=== PATIENT | female | born 1995 | race Caucasian/White ===

== ENCOUNTER 2023-09-28 15:37 | Inpatient (IN) | payer BC, SELFPAY ==
[2023-09-28 15:42] VITALS: BP 131/99; PULSE 135; RESP 16; TEMP 36.6; O2SAT 98; BMI 20.1
--- NOTE | 2023-09-28 17:27 | HP.PCM.HOS_ITS ---
HPI - General General Date of Admission: 09/28/23 Date of Service: 09/28/23 Chief Complaint: EtOH Withdrawal HPI Narrative The patient is a 28 y/o F w/ PMHx: EtOH abuse (Liquor shots ~ 20/day) ongoing for the last 10-11 years, Chronic anemia, Tobacco use, Asthma with allergic rhinitis who presents to the [facility] on 09/28/23 w/ noted acute EtOH withdrawal, onset starting on day of presentation in the late afternoon with last alcohol intake approximately 2 AM with onset of nausea without emesis, tremors, mild agitation, tactile disturbances. Patient interested in attaining sober status. Work-up in the ED included T97.8, heart rate 135, BP 131/99, respiratory rate 16, 98% on room air, CBC with WBC 8.7, hemoglobin 14.6, platelet 399 without marked shift, CMP with sodium 129, potassium 2.5, chloride 78, glucose 122, T. bili 1.70, AST/LT 64/35, alk phos 206, negative serum testing, ethyl alcohol 290. Urine drug screen pending upon requested evaluation of patient. In the ED patient ministered potassium 40 mill equivalent p.o. x1. [facility] Medical History Allergic rhinitis Anemia Asthma ETOH abuse Tobacco use Home Medications cetirizine 10 mg tablet (24Hour Allergy) 10 mg PO DAILY PRN allergy symptoms 09/28/23 [History Last Taken Unknown] Allergy/AdvReac Type Severity Reaction Status Date / Time Penicillins Allergy Severe Hives Verified 09/28/23 15:41 Family History (Updated 09/28/23 @ 19:[address] Sintia Chi MD) Mother Breast cancer Grandmother Breast cancer Father Alcoholism Surgical History (Updated 09/28/23 @ 19:[address] Sintia Chi MD) H/O colposcopy with cervical biopsy History of dental surgery Social History (Updated 09/28/23 @ 19:[address] Sintia Chi MD) household members: none Smoking Status: Current every day smoker tobacco type: e-cigarettes how long ago did patient quit smoking: Quit cigarette tobacco 3 yrs prior (1 ppd since teen)->transition to vaping alcohol intake: current alcohol intake frequency: 3 or more drinks per day details: ~ 20 apple liquor shots daily. substance use type: does not use ROS ROS Narrative Admission Review of Systems: CONSTITUTIONAL: No weight loss, fever, chills, + weakness or fatigue. HEENT: Eyes: No visual loss, blurred vision, double vision or yellow sclerae. Ears, Nose, Throat: No hearing loss, sneezing, congestion, runny nose or sore throat. SKIN: No rash or itching, lesions, wounds. CARDIOVASCULAR: No chest pain, chest pressure or chest discomfort, palpitations, edema, orthopnea, syncopal events. RESPIRATORY: No shortness of breath, cough or sputum, wheezing, hemoptysis. GASTROINTESTINAL: + anorexia. No nausea, vomiting or diarrhea, abdominal pain, melena, BRBPR. GENITOURINARY: No dysuria, frequency, urgency or retention. NEUROLOGICAL: + Mild tremors, tactile disturbances. No headache, dizziness, syncope, paralysis, ataxia, numbness or tingling in the extremities, focal weakness, change in bowel or bladder control, seizure. MUSCULOSKELETAL: + muscle, back pain, joint pain or stiffness. HEMATOLOGIC: + Hx anemia. No bleeding or bruising. LYMPHATICS: No enlarged nodes. No history of splenectomy. PSYCHIATRIC: No history of depression or anxiety. ENDOCRINOLOGIC: No reports of sweating, cold or heat intolerance. No polyuria or polydipsia. ALLERGIES: + history of asthma, rhinitis, hives. Vital Signs Vital Signs Vital Signs: 09/28/23 15:42 Temperature 97.8 F Temperature Source Temporal Pulse Rate 135 H Respiratory Rate 16 Blood Pressure 131/99 H Blood Pressure Mean 109 Pulse Ox 98 Oxygen Delivery Method Room Air Weight Weight: 103 lb 1.6 oz Body Mass Index (BMI) 20.1 Physical Exam Narrative Physical Examination: General: Awake, alert, oriented x 3 and cooperative, seated upright in the ED bed, fatigued, mildly tremulous. Skin: Normal color, normal turgor, no icterus, no cyanosis except for occasional staged, ecchymoses. HEENT: AT/NC, EOMI, PERRLA, dry MM, no carotid bruits or JVD noted. Lungs: CTA bilaterally, moderate effort, mild decrease BL bases, no rales, ronchi or wheezing. Heart: Tachycardic with regular rhythm; no gallop, rub audible. Abdomen: Soft, NTTP, ND, hyperactive BS, no marked HM appreciated. Extremities: No cyanosis, clubbing, or edema. Neurological: Patient awake, alert, oriented as noted, cognitive function intact; pupils equally reactive to light and accommodation, cranial nerves gross ly normal, moving all 4 extremities, no focal deficits, strength mildly globally decreased, mild tremors, tactile disturbances noted. Psychiatric: Affect appears fatigued, flat, no acute evidence of depressive or anxiety feelings. Results Lab / Micro Data 09/28/23 17:45 09/28/23 17:45 Assessment & Plan Assessment/Plan (1) Alcohol withdrawal: PLAN: Plan The patient is a 28 y/o F w/ PMHx: EtOH abuse (Liquor shots ~ 20/day) ongoing for the last 10-11 years, Chronic anemia, Tobacco use, Asthma with allergic rhinitis who presents to the [facility] on 09/28/23 w/ noted acute EtOH withdrawal. #1. Acute EtOH Withdrawal with chronic alcohol abuse and mild hyperbilirubinemia and transaminitis: Will admit to NC, routine labs obtained in the ED upon presentation with electrolyte disturbances with sodium 129, potassium 2.5, chloride 78, total bilirubin 1.70, AST/ALT 64/35, alk phos 206, negative testing, ethyl alcohol level 290, given interest in sobriety, will initiate and continue on protocol with taper course of Phenobarbital, as needed gabapentin, Catapres, Bentyl, Vistaril, IV fluids, IV antiemetics, Tylenol as needed for pain. Will consult Case management for assistance for transition to next level of rehabilitation care. Mag, phos pending. Maintain on CIWA protocol concurrently. #2. Hyponatremia, suspect acute on chronic component: Admission sodium 129, chloride 78, suspect acute on chronic given alcohol withdrawal presentation with alcohol abuse but no prior comparisons, will administer IV fluid bolus and will repeat CMP in a.m. given significant electrolyte concurrent disturbances. #3. Hypokalemia: Admission K+ 2.5, magnesium level requested, supplementation given given in the ED and will add an additional oral dose, repeat level in AM. #4. Anemia, unclear etiology: Patient reports a remote history of chronic anemia that required transfusion with no clear etiology and even noted transfer down to [facility]. She denies heavy menstruation and in fact does not have cycles but was previously on Depo-Provera shots. Upon current presentation hemoglobin 14.6, MCV 89, encourage continued outpatient follow-up. #5. Chronic COPD: Will maintain on oxygen with wean as tolerated to room air/home oxygen supplementation, continue ATC duonebs, PRN albuterol, HOB, IS parameters. #6. Tobacco Abuse: Encouraged cessation, inpatient consultation per RT, NR if desired. #7. DVT prophylaxis: Low risk for type of admission. Charges/Coding Visit Charges Inpatient E&M: 13185 Init Hosp L3
--- NOTE | 2023-09-28 17:28 | EX.ED.SAOD ---
HPI History of Present Illness Chief Complaint: Substance Abuse Informant: patient Onset/Context/Timing Onset: Today Context: Gradual Onset Timing: Continuous Worsened by: Nothing Relieved by: Nothing Associated Symptoms Associated Symptoms: Positive for vomiting*, diarrhea*, rash*, palpatations and no; Negative for fever*, seizure, tremor, change in mental status, suicidal ideation or homicidal ideation Narrative Narrative: Presents requesting detox from alcohol. Patient states her last drink was approximately 15 hours prior to arrival. Patient states she drinks approximately 20 shots per day. Patient admits to some vomiting and diarrhea. Patient admits to some subjective chills but denies any fevers. Patient admits to some palpitations. Patient denies any chance of . Patient has never been through detox in the past. Patient denies any suicidal or homicidal ideations. PFSH PFSH Medical History Anemia ETOH abuse Allergy/AdvReac Type Severity Reaction Status Date / Time Penicillins Allergy Severe Hives Verified 09/28/23 15:41 Social History Smoking Status: Current every day smoker tobacco type: e-cigarettes ROS ROS ED Constitutional Constitutional ED: Reports chills and subjective Eyes Eyes: Denies blurry vision or change in vision ENT ENT ED: Denies rhinorrhea or sore throat Cardiovascular Cardiovascular: Reports palpitations; Denies chest pain Respiratory/Chest Respiratory/Chest: Denies cough or dyspnea Gastrointestinal Gastrointestinal: Reports diarrhea and vomiting Genitourinary Genitourinary ED: Denies dysuria or urinary frequency Musculoskeletal Musculoskeletal: Denies back pain or neck pain Integumentary Reports rash Neurologic Neurologic: Denies headache(s) or weakness Allergic/Immunologic Allergic/Immunologic ED: Denies tongue swelling or urticaria EXAM Physical Exam Const Vital Signs: 09/28/23 15:42 Temperature 97.8 F Temperature Source Temporal Pulse Rate 135 H Respiratory Rate 16 Blood Pressure 131/99 H Blood Pressure Mean 109 Pulse Ox 98 Oxygen Delivery Method Room Air Positive well nourished and well developed General Appearance ED: well developed and NAD HEENT Reports moist mucous membranes Neck supple and no JVD Resp normal respiratory effort and clear to auscultation bilaterally Cardio regular rate and regular rhythm GI non-tender and non-distended Neuro oriented x3, CN's II-XII intact bilaterally and no sensory deficits noted Jen Coma Scale: document GCS findings Spontaneous Obeys Commands Oriented 15 Sensorium / Orientation: alert Speech: speech normal Motor Exam: strength 5/5 throughout MDM MDM MDM Narrative Medical decision making narrative: Differential diagnosis includes alcohol detox, alcohol withdrawal, and substance abuse. CBC will be obtained to assess for leukocytosis and anemia. Comprehensive metabolic profile will be obtained to assess for hepatic function, renal function, and electrolyte abnormality. Serum hCG will be obtained to assess for . Serum alcohol level will be obtained to assess for alcohol intoxication. Urine tox screen will be obtained to assess for substance abuse. Treatment and Re-Evaluation Narrative: IV line was established. Case was discussed with the hospitalist. She will admit the patient to her service. Patient understood and was agreeable with the plan. All questions were answered. Discharge Plan Triage Chief Complaint: Substance Abuse ED Provider: Eduardo Daniel Dx/Rx/DC Orders Clinical Impression: Alcohol dependence, Alcohol withdrawal Disposition Disposition: Acute Care Hospital [facility]
[2023-09-28 17:51] VITALS: BP 124/90; PULSE 107; RESP 16; TEMP 36.8; O2SAT 98
[2023-09-28 18:30] LABS: Absolute Lymphocyte Count 2.62 X10^3/uL (0.83-4.51); Absolute Neutrophil Count 5.3 X10^3/uL (2.0-7.7); Basophil# 0.07 X10^3/uL; Basophil% 0.8 % (0-1); Eosinophil# 0.01 X10^3/uL; Eosinophils% 0.1 % (0-5); Hemoglobin 14.6 g/dL (12.0-15.0); Lymphocyte # 2.62 X10^3/ul (0.83-4.51); Lymphocyte % 30.2 % (19-41); Mean Corp Hgb Conc 37.4 g/dL (32-36); Mean Corpuscular Hgb 33.3 pg (27.0-32.0); Mean Platelet Vol. 10.4 fl (6.2-12.0); Monocyte% 8.1 % (0-10); NRBC Flagged by Analyzer 0 % (0-5); Neutrophil # 5.25 X10^3/uL (2.7-7.7); Neutrophil % 60.6 % (47-70); Platelet Count 399 K/mm3 (150-450); RBC Distribution Width SD 41.9 fl (35.1-43.9); Red Blood Count 4.38 M/mm3 (4.2-5.4); White Blood Count 8.7 K/mm3 (4.4-11.0)
[2023-09-28 18:35] LABS: Internal QC Validated? YES +Cl - CLEAR BKGD; Pregnancy, Serum, hCG Quali. NEGATIVE Negative; Record Kit Lot#, Serum Preg. 667200
[2023-09-28 18:37] LABS: Phosphorus 4.5 mg/dL (2.5-4.9)
[2023-09-28 18:46] LABS: ALB/GLOB Ratio 1.2 RATIO (0.9-2.4); AST(SGOT) 64 U/L (15-37); Alanine Aminotransfer ALT/SGPT 35 U/L (13-56); Albumin, Serum 4.4 g/dL (3.2-5.0); Alkaline Phosphatase 206 U/L (45-117); Anion Gap 22 (5-15); BUN 10 mg/dL (7-18); BUN/Creat Ratio 12.1 RATIO (10-20); Calcium,Total 9.9 mg/dL (8.5-10.1); Chloride 78 mmol/L (98-107); Creatinine, Serum 0.83 mg/dL (0.55-1.02); EST Glomerular Filtration Rate 88 mL/min (>60); Est Glom Filt Rate - Afr Amer 106 mL/min (>60); Estimated Creatinine Clearance 73.13 ml/min; Globulin 3.7 g/dL (2.2-4.2); Glucose 122 mg/dL (74-106); Magnesium 2.2 mg/dL (1.6-2.6); Potassium 2.5 mmol/L (3.5-5.1); Protein, Total 8.1 g/dL (6.4-8.2); Sodium Level 129 mmol/L (136-145)
[2023-09-28] MEDS: Potassium Chloride Oral Tablet 20 MEQ 40 MEQ PO (18:56)
[2023-09-28 19:18] VITALS: BMI 19.8
[2023-09-28 19:27] VITALS: BP 123/89; PULSE 100; RESP 20; TEMP 36.9; O2SAT 106
[2023-09-28] MEDS: Potassium Chloride Oral Tablet 20 MEQ PO (19:48)
[2023-09-28] MEDS: Phenobarbital 32.4 MG Tablet 64.8 MG PO ×2 (19:48→23:30)
[2023-09-28] MEDS: hydrOXYzine PAM 25 MG Capsule 50 MG PO (19:48)
[2023-09-28] MEDS: Lactated Ringers 1,000 ML 125 ML IV (19:49)
[2023-09-28] MEDS: 0.9% Saline Lock 10 ML Syringe IV (19:52)
[2023-09-28] MEDS: traZODone 100 MG Tablet PO (19:58)
[2023-09-28 23:30] VITALS: BP 108/61; PULSE 105; RESP 16; TEMP 37.1; O2SAT 100
[2023-09-29] VITALS (8 sets, daily range): BP systolic 110–120; BP diastolic 69–94; PULSE 72–116; RESP 16–18; TEMP 36.7–37.1; O2SAT 97–100
[2023-09-29] MEDS: Ibuprofen 600 MG Tablet PO (01:43)
[2023-09-29] MEDS: Gabapentin 300 MG Capsule PO ×2 (01:44→20:25)
[2023-09-29] MEDS: Phenobarbital 32.4 MG Tablet 64.8 MG PO ×6 (03:42→23:35)
[2023-09-29] MEDS: Acetaminophen 325 MG Tablet 650 MG PO (03:44)
[2023-09-29 04:14] LABS: Amphetamine Urine VISTA NEGATIVE (<1000 ng/mL); Barbiturate Urine VISTA POSITIVE (< 200 ng/mL); Benzodiazepine Urine VISTA NEGATIVE (< 200 ng/mL); Cocaine Urine VISTA NEGATIVE (< 300 ng/mL); Ecstacy Urine VISTA NEGATIVE (< 500 ng/mL); Methadone Urine VISTA NEGATIVE (< 300 ng/mL); PCP Urine VISTA NEGATIVE (< 25 ng/mL); THC Urine VISTA NEGATIVE (< 50 ng/mL); Vista UDS pH Range 7
[2023-09-29 07:22] LABS: ALB/GLOB Ratio 1.2 RATIO (0.9-2.4); AST(SGOT) 41 U/L (15-37); Alanine Aminotransfer ALT/SGPT 22 U/L (13-56); Albumin, Serum 3.3 g/dL (3.2-5.0); Alkaline Phosphatase 145 U/L (45-117); Anion Gap 13 (5-15); BUN 12 mg/dL (7-18); BUN/Creat Ratio 15.6 RATIO (10-20); Calcium,Total 8.1 mg/dL (8.5-10.1); Chloride 82 mmol/L (98-107); Creatinine, Serum 0.77 mg/dL (0.55-1.02); EST Glomerular Filtration Rate 95 mL/min (>60); Est Glom Filt Rate - Afr Amer 115 mL/min (>60); Estimated Creatinine Clearance 78.83 ml/min; Globulin 2.7 g/dL (2.2-4.2); Glucose 92 mg/dL (74-106); Sodium Level 127 mmol/L (136-145)
--- NOTE | 2023-09-29 07:30 | PCM.PN.HOSP ---
Reason for Visit Reason for Visit: Diagnoses Alcohol use, unspecified with withdrawal, unspecified (09/28/23) Subjective Subjective Feel ok. No events overnight. Objective Data Objective Data Vital Signs: Vital Signs Temp Pulse Resp BP Pulse Ox O2 Del Method 37.1 C 109 H 16 112/75 97 Room Air 09/29/23 03:30 09/29/23 03:30 09/29/23 03:30 09/29/23 03:30 09/29/23 03:30 09/29/23 03:30 Oxygen Delivery Method Room Air Weight: 46.04 kg Body Mass Index (BMI) 19.8 Intake & Output: Intake and Output for Last 24 Hours 09/27/23 09/28/23 09/29/23 23:59 23:59 23:59 Intake Total 1000 / 1000 Output Total 300 / 300 Balance 700 / 700 Lab / Micro Data 09/28/23 17:45 09/29/23 05:50 Labs: Laboratory Results - last 24 hr 09/28/23 17:45: WBC 8.7, RBC 4.38, Hgb 14.6, Hct 39.0, MCV 89.0, MCH 33.3 H, MCHC 37.4 H, RDW Std Deviation 41.9, RDW Coeff of Bryon 13.0, Plt Count 399, MPV 10.4, Immature Gran % (Auto) 0.200, Neut % (Auto) 60.6, Lymph % (Auto) 30.2, Carbon % (Auto) 8.1, Eos % (Auto) 0.1, Baso % (Auto) 0.8, Absolute Neuts (auto) 5.3, Absolute Lymphs (auto) 2.62, Nucleated RBC % 0, Sodium 129 L, Potassium 2.5 L*, Chloride 78 L, Carbon Dioxide 29.0, Anion Gap 22 H, BUN 10, Creatinine 0.83, Estim Creat Clear Calc 73.13, Est GFR (MDRD) Af Amer 106, Est GFR (MDRD) Non-Af 88, BUN/Creatinine Ratio 12.1, Glucose 122 H, Calcium 9.9, Phosphorus 4.5, Magnesium 2.2, Total Bilirubin 1.70 H, AST 64 H, ALT 35, Alkaline Phosphatase 206 H, Total Protein 8.1, Albumin 4.4, Globulin 3.7, Albumin/Globulin Ratio 1.2, Serum , Qual NEGATIVE, Ethyl Alcohol 290.0 09/29/23 03:18: Urine Opiates Screen NEGATIVE, Urine Methadone Screen NEGATIVE, Ur Barbiturates Screen POSITIVE H, Ur Phencyclidine Scrn NEGATIVE, Ur Amphetamines Screen NEGATIVE, MDMA (Ecstasy) Screen NEGATIVE, U Benzodiazepines Scrn NEGATIVE, Urine Cocaine Screen NEGATIVE, U Cannabinoids Screen NEGATIVE, Ur Drug Screen Comment 09/29/23 05:50: Sodium 127 L, Potassium 3.0 L, Chloride 82 L, Carbon Dioxide 32.0, Anion Gap 13, BUN 12, Creatinine 0.77, Estim Creat Clear Calc 78.83, Est GFR (MDRD) Af Amer 115, Est GFR (MDRD) Non-Af 95, BUN/Creatinine Ratio 15.6, Glucose 92, Calcium 8.1 L, Total Bilirubin 2.00 H, AST 41 H, ALT 22, Alkaline Phosphatase 145 H, Total Protein 6.0 L, Albumin 3.3, Globulin 2.7, Albumin/Globulin Ratio 1.2 Physical Exam Const alert and no apparent distress HEENT head/scalp atraumatic Extremity normal to inspection Neuro oriented x3 Sensorium / Orientation: awake and alert Psych affect normal Assessment & Plan Assessment/Plan (1) Alcohol withdrawal: QUALIFIERS: Complication of substance-induced condition: uncomplicated Qualified Code(s): F10.930 - Alcohol use, unspecified with withdrawal, uncomplicated PLAN: Acute EtOH Withdrawal with chronic alcohol abuse and mild hyperbilirubinemia and transaminitis: negative testing, ethyl alcohol level 290, given interest in sobriety, will initiate and continue on protocol with taper course of Phenobarbital, as needed gabapentin, Catapres, Bentyl, Vistaril, IV fluids, IV antiemetics, Tylenol as needed for pain. (2) Hyponatremia: PLAN: Suspect due alcohol. (3) Hypokalemia: PLAN: Ongoing. Continue to replace. PLAN: Plan Tobacco Abuse: Encouraged cessation, inpatient consultation per RT, NR if desired. DVT prophylaxis: Low risk for type of admission. Charges/Coding Visit Charges Inpatient E&M: 16683 Subs Hosp L2
[2023-09-29] MEDS: Ondansetron 8 MG Tablet PO (07:48)
[2023-09-29] MEDS: Dicyclomine 10 MG Capsule 20 MG PO (07:48)
[2023-09-29] MEDS: Multivitamins,Ther W-Minerals Tablet 1 TABLET PO (07:49)
[2023-09-29] MEDS: hydrOXYzine PAM 25 MG Capsule 50 MG PO ×3 (07:49→16:47)
[2023-09-29] MEDS: Folic Acid 1 MG Tablet PO (07:49)
[2023-09-29] MEDS: Thiamine Hydrochloride 100 MG Tablet PO (07:49)
[2023-09-29] MEDS: Potassium Chloride Oral Tablet 20 MEQ 40 MEQ PO ×2 (07:49→16:41)
--- NOTE | 2023-09-29 12:45 | ADDICTION ---
This technical writer and editor met with PT to conduct ASAM, MSE, AUDIT assessments and to plan for d/c. PT A+Ox4 and participated actively. All assessments completed and placed in PT's chart. PT plans to f/u with [facility] for follow-up treatment services. PT did not indicate a need for transportation post d/c from [facility].
[2023-09-29] MEDS: traZODone 100 MG Tablet PO (20:25)
[2023-09-30 03:30] VITALS: BP 108/64; PULSE 105; RESP 16; TEMP 36.6; O2SAT 99
[2023-09-30] MEDS: Phenobarbital 32.4 MG Tablet 64.8 MG PO ×4 (03:46→15:46)
[2023-09-30 06:59] LABS: Anion Gap 6 (5-15); BUN 4 mg/dL (7-18); BUN/Creat Ratio 5.9 RATIO (10-20); Chloride 94 mmol/L (98-107); Creatinine, Serum 0.68 mg/dL (0.55-1.02); EST Glomerular Filtration Rate 110 mL/min (>60); Est Glom Filt Rate - Afr Amer 133 mL/min (>60); Estimated Creatinine Clearance 89.26 ml/min; Glucose 105 mg/dL (74-106); Potassium 2.7 mmol/L (3.5-5.1); Sodium Level 130 mmol/L (136-145)
--- NOTE | 2023-09-30 07:53 | PCM.PN.HOSP ---
Reason for Visit Reason for Visit: Diagnoses Hypo-osmolality and hyponatremia (09/28/23) Hypokalemia (09/28/23) Alcohol use, unspecified with withdrawal, uncomplicated (09/28/23) Alcohol use, unspecified with withdrawal, unspecified (09/28/23) Subjective Subjective Feeling well. No issues overnight. Feels ready for discharge today. Objective Data Objective Data Vital Signs: Vital Signs Temp Pulse Resp BP Pulse Ox O2 Del Method 36.6 C 105 H 16 108/64 99 Room Air 09/30/23 03:30 09/30/23 03:30 09/30/23 03:30 09/30/23 03:30 09/30/23 03:30 09/30/23 03:30 Oxygen Delivery Method Room Air Weight: 46.04 kg Body Mass Index (BMI) 19.8 Intake & Output: Intake and Output for Last 24 Hours 09/28/23 09/29/23 09/30/23 23:59 23:59 23:59 Intake Total 1000 / 1000 Output Total 300 / 300 Balance 700 / 700 Medical Nutrition Assessment Dietitian: Malnutrition Criteria Met Start: 09/29/23 10:53 Freq: Status: Active Protocol: Document 09/29/23 10:53 SLA (Rec: 09/29/23 10:53 SLA Desktop) Nutrition Malnutrition Evidence of Malnutrition Exists Yes Malnutrition (severe): Social/Behavioral/ Environmental Evidenced By Suboptimal Energy Intake ( Severe),Weight Loss (Severe) Clinical Problem Chronic Disease or Condition Related Malnutrition Etiology related to alcohol abuse and inadequate energy intake Signs/Symptoms as evidenced by no food intake x 10 days [employer] and 13.3% unintended wt loss x <2-3 months [employer] Status Active Problem Recommendation Dietitian Recommendations/Changes Continue liberal regular diet w/ snacks tid and ensure plus high protein w/ meals Lab / Micro Data 09/28/23 17:45 09/30/23 05:49 Labs: Laboratory Results - last 24 hr 09/30/23 05:49: Sodium 130 L, Potassium 2.7 L*, Chloride 94 L, Carbon Dioxide 30.0, Anion Gap 6, BUN 4 L, Creatinine 0.68, Estim Creat Clear Calc 89.26, Est GFR (MDRD) Af Amer 133, Est GFR (MDRD) Non-Af 110, BUN/Creatinine Ratio 5.9 L, Glucose 105, Calcium 8.0 L Physical Exam Const alert and no apparent distress HEENT head/scalp atraumatic Neuro Sensorium / Orientation: awake and alert Assessment & Plan Assessment/Plan (1) Alcohol withdrawal: QUALIFIERS: Complication of substance-induced condition: uncomplicated Qualified Code(s): F10.930 - Alcohol use, unspecified with withdrawal, uncomplicated PLAN: Acute EtOH Withdrawal with chronic alcohol abuse and mild hyperbilirubinemia and transaminitis: negative testing, ethyl alcohol level 290, given interest in sobriety, will initiate and continue on protocol with taper course of Phenobarbital, as needed gabapentin, Catapres, Bentyl, Vistaril, IV fluids, IV antiemetics, Tylenol as needed for pain. DC home. Follow up with IOP in her town. (2) Hyponatremia: PLAN: Suspect due chronic alcohol abuse. Improved. (3) Hypokalemia: PLAN: Ongoing. Continue to replace. Likely due chronic depletion. Magnesium was 2.2 on admissoin. PLAN: Plan Tobacco Abuse: Encouraged cessation, inpatient consultation per RT, NR if desired. DVT prophylaxis: Low risk for type of admission.
[2023-09-30] MEDS: Thiamine Hydrochloride 100 MG Tablet PO (08:12)
[2023-09-30] MEDS: Folic Acid 1 MG Tablet PO (08:12)
[2023-09-30] MEDS: Multivitamins,Ther W-Minerals Tablet 1 TABLET PO (08:12)
--- NOTE | 2023-09-30 10:12 | DS.PCM_ITS ---
Providers Date of Admission: 09/28/23 Primary Care Physician: Dr. Duglas Chairez MD Reason For Visit: ETOH WITHDRAWL Diagnosis Discharge Diagnosis (1) Alcohol withdrawal: Status: Acute Code(s): F10.939 - Alcohol use, unspecified with withdrawal, unspecified Qualifiers: Complication of substance-induced condition: uncomplicated Qualified Code(s): F10.930 - Alcohol use, unspecified with withdrawal, uncomplicated Plan: Acute EtOH Withdrawal with chronic alcohol abuse and mild hyperbilirubinemia and transaminitis: negative testing, ethyl alcohol level 290, given interest in sobriety, will initiate and continue on protocol with taper course of Phenobarbital, as needed gabapentin, Catapres, Bentyl, Vistaril, IV fluids, IV antiemetics, Tylenol as needed for pain. DC home. Follow up with [facility] in her town. (2) Hyponatremia: Status: Acute Code(s): E87.1 - Hypo-osmolality and hyponatremia Plan: Suspect due chronic alcohol abuse. Improved. (3) Hypokalemia: Status: Acute Code(s): E87.6 - Hypokalemia Plan: Ongoing. Continue to replace. Likely due chronic depletion. Magnesium was 2.2 on admissoin. Plan Tobacco Abuse: Encouraged cessation, inpatient consultation per RT, NR if desired. DVT prophylaxis: Low risk for type of admission. Medications at Discharge Home Medications cetirizine 10 mg tablet (24Hour Allergy) 10 mg PO DAILY PRN allergy symptoms 09/28/23 Hospital Course Summary of Care Provided Hospital Course: Patient presenting treated for alcohol withdrawal. Patient's course was uncomplicated was on phenobarbital. Patient did have issues with low sodium and is likely related with alcohol and did have issues with hypokalemia that did require replacement on 2 occasions. The potassium is likely a chronic issue given and adequate nutrition. Patient advised to eat more regularly and hopefully avoiding alcohol patient can consume regular calories. Medical Records Data Medical Nutrition Assessment Dietitian: Malnutrition Criteria Met Start: 09/29/23 10:53 Freq: Status: Active Protocol: Document 09/29/23 10:53 RABIA (Rec: 09/29/23 10:53 RABIA Desktop) Nutrition Malnutrition Evidence of Malnutrition Exists Yes Malnutrition (severe): Social/Behavioral/ Environmental Evidenced By Suboptimal Energy Intake ( Severe),Weight Loss (Severe) Clinical Problem Chronic Disease or Condition Related Malnutrition Etiology related to alcohol abuse and inadequate energy intake Signs/Symptoms as evidenced by no food intake x 10 days [employer] and 13.3% unintended wt loss x <2-3 months [employer] Status Active Problem Recommendation Dietitian Recommendations/Changes Continue liberal regular diet w/ snacks tid and ensure plus high protein w/ meals Weight / BMI Weight Weight: 46.04 kg Body Mass Index (BMI) 19.8 ABG / Lab / Microbiology Data 09/28/23 17:45 09/30/23 05:49 Laboratory: Laboratory Results - last 24 hr 09/30/23 05:49: Sodium 130 L, Potassium 2.7 L*, Chloride 94 L, Carbon Dioxide 30.0, Anion Gap 6, BUN 4 L, Creatinine 0.68, Estim Creat Clear Calc 89.26, Est GFR (MDRD) Af Amer 133, Est GFR (MDRD) Non-Af 110, BUN/Creatinine Ratio 5.9 L, Glucose 105, Calcium 8.0 L Meaningful Use Info Meaningful Use Diagnoses (Choose all that apply): None applicable Discharge Plan Admission Admit Date/Time: 09/28/23 17:27 Attending Provider: Eduardo Samayoa Primary Care Provider: Duglas Chairez Consulting Providers: Sintia Chi Discharge Orders/Prescriptions Prescriptions: No Action cetirizine [24Hour Allergy] 10 mg tablet 10 mg PO DAILY PRN (Reason: allergy symptoms) Referrals / Follow Up: Duglas Chairez MD [Primary Care Provider] - Disposition Disposition (needs filled in before D/C Order can be placed): Home, Self Care Charges/Coding Visit Charges Inpatient E&M: 95829 Disch Hosp
[2023-09-30] MEDS: Potassium Chloride 10mEq/100mL 10 MEQ/100 ML IV.SOLN. 100 MEQ IV BOLUS ×4 (10:17→15:18)
[2023-09-30] MEDS: Potassium Chloride Oral Tablet 20 MEQ 60 MEQ PO (10:17)
[2023-09-30] MEDS: 0.9% Saline Lock 10 ML Syringe IV (10:17)
[2023-09-30] MEDS: 0.9% Normal Saline (250mL Bag) 250 ML 15 ML IV (10:17)
[2023-09-30 10:32] VITALS: BP 113/74; PULSE 100; RESP 14; TEMP 37; O2SAT 100
[2023-09-30 14:55] VITALS: BP 108/72; PULSE 99; RESP 18; TEMP 37.1; O2SAT 99
[2023-09-30 14:58] LABS: Anion Gap 4 (5-15); BUN 5 mg/dL (7-18); BUN/Creat Ratio 8.7 RATIO (10-20); Calcium,Total 7.9 mg/dL (8.5-10.1); Chloride 95 mmol/L (98-107); Creatinine, Serum 0.57 mg/dL (0.55-1.02); EST Glomerular Filtration Rate 134 mL/min (>60); Est Glom Filt Rate - Afr Amer 162 mL/min (>60); Estimated Creatinine Clearance 106.49 ml/min; Glucose 95 mg/dL (74-106); Potassium 3.8 mmol/L (3.5-5.1); Sodium Level 127 mmol/L (136-145)
--- NOTE | 2023-09-30 16:54 | NURSING ---
Dr. Samayoa notified of na level of 127, and rip 3.8, said ok for discharge.
== END 2023-09-30 16:54 | disposition home or self-care (01) | DRG 897 ==
LOC: ED 18:10 → MS3 18:11
PROVIDERS: Admitting Provider Family Medicine; Emergency Provider Emergency Medicine
DX: F10.139 Alcohol abuse with withdrawal, unspecified (principal); E87.1 Hypo-osmolality and hyponatremia; J44.9 Chronic obstructive pulmonary disease, unspecified; E87.6 Hypokalemia; F17.290 Nicotine dependence, other tobacco product, uncomplicated; Y90.8 Blood alcohol level of 240 mg/100 ml or more
CPT/HCPCS: 36415; 80048; 80053; 80307; 82077; 83735; 84100; 84703; 85025; 97802; 99284; J7050; J7120; A4216